=== PATIENT | male | born 1985 | race Asian ===

== ENCOUNTER 2017-02-08 08:29 | Emergency (ER) | payer OTHER ==
[~2017-02-08] VITALS: Ht 188 cm; Wt 127.0 kg
== END 2017-02-08 09:23 | disposition home or self-care (01) ==
LOC: ED 08:29
DX: J06.9 Acute upper respiratory infection, unspecified (principal); B34.9 Viral infection, unspecified
CPT/HCPCS: 99282

== ENCOUNTER 2018-05-17 18:04 | Emergency (ER) | payer OTHER ==
[~2018-05-17] VITALS: Ht 188 cm; Wt 99.8 kg
[2018-05-17 18:15] VITALS: TEMP 97.9
[2018-05-17 19:39] LABS: PLATELET COUNT 238 K/uL (142-355)
[2018-05-17 19:46] LABS: POTASSIUM 4.8 mmol/L (3.6-5.2)
[2018-05-17 22:49] VITALS: BP 138/99
== END 2018-05-17 22:49 | disposition home or self-care (01) ==
LOC: ED 18:04
PROVIDERS: Emergency Medicine
DX: R10.10 Upper abdominal pain, unspecified (principal)
CPT/HCPCS: 36415; 80053; 81000; 82150; 83690; 85027; 96372; 99283; J1885; Q9963